=== PATIENT | male | born 1950 | race Caucasian/White ===

== ENCOUNTER 2022-05-14 09:06 | Emergency (ER) | payer MEDICARE ==
[~2022-05-14] VITALS: Ht 172.7 cm; Wt 86.0 kg
[~2022-05-14 09:06] MED LIST: CLONIDINE0.1 MG OR
[2022-05-14 09:22] VITALS: BP 147/83
[2022-05-14] MEDS ORDERED: LOSARTAN POTASS25 MG PO (09:29)
[2022-05-14] MEDS ORDERED: NORVASC5 M1 PO (09:29)
[2022-05-14 09:30] VITALS: BP 131/87
[2022-05-14] MEDS ORDERED: ASPIRIN81 MG PO (09:30)
[2022-05-14] MEDS ORDERED: CRESTOR20 MG PO (09:30)
[2022-05-14 10:15] VITALS: BP 140/77
[2022-05-14 10:30] VITALS: BP 139/72
[2022-05-14 11:13] VITALS: BP 139/72
== END 2022-05-14 11:13 | disposition home or self-care (01) ==
LOC: ED 09:06
DX: S50.312A Abrasion of left elbow, initial encounter (principal); S80.212A Abrasion, left knee, initial encounter; I10 Essential (primary) hypertension; W13.2XXA Fall from, out of or through roof, initial encounter; Y93.89 Activity, other specified; Y92.008 Other place in unspecified non-institutional (private) residence as the place of occurrence of the external cause